=== PATIENT | female | born 1980 | race Caucasian/White ===

== ENCOUNTER 2024-06-11 19:37 | Emergency (ER) | payer BC, SELFPAY ==
[2024-06-11 19:41] VITALS: BP 110/64
[2024-06-11 20:07] LABS: Urine Albumin Trace (Neg - Trace); Urine Bilirubin Negative (Negative); Urine Character Clear (Clear); Urine Color Yellow; Urine Glucose Negative (Negative); Urine Ketone 2+ (Negative); Urine Leukocyte Negative (Negative); Urine Nitrite Negative (Negative); Urine Occult Blood 4+ (Negative); Urine Specific Gravity 1.025 (<1.030); Urine Urobilinogen Negative (Neg - 1+)
[2024-06-11 20:16] LABS: Urine Mucus Few; Urine Squamous Cell >30 /LPF (Few)
[2024-06-11 20:17] LABS: Urine Red Blood Cell 50-60 /HPF (0-2)
[2024-06-11 20:18] LABS: Urine Calcium Oxalate Crystals Present; Urine White Cell 0-2 /HPF (0-5)
[2024-06-11 20:19] LABS: Urine Bacteria Moderate (Negative); Urine Yeast Few (Negative)
[2024-06-11 20:20] LABS: HCG, Serum Qualitative Screen Negative
[2024-06-11 20:23] LABS: ALT (SGPT) 18 U/L (0-35); AST (SGOT) 31 U/L (14-36); Albumin 4.6 g/dl (3.5-5.0); Alkaline Phosphatase 83 U/L (38-126); Blood Urea Nitrogen 19 mg/dl (7-17); Calcium 9.5 mg/dl (8.4-10.2); Carbon Dioxide 23 mmol/L (22-30); Chloride 102 mmol/L (98-107); Glucose 94 mg/dl (70-99); Lipase 68 U/L (23-300); Sodium 136 mmol/L (135-145); Total Bilirubin 1.6 mg/dl (0.2-1.3); Total Protein 7.4 g/dl (6.3-8.2); eGFR > 60.00
--- NOTE | 2024-06-11 22:02 | ED.GENMED ---
History of Present Illness
General
Chief Complaint: Abdominal Symptoms
Time Seen by Provider: 06/11/24 21:41
History of Present Illness
History of Present Illness:
43-year-old female presents the emergency department for evaluation of abrupt onset of left lower pelvic pain with associated nausea and vomiting. Pain is waxing and waning in nature and seems to correlate with her episodes of vomiting. No
associated diarrhea. No fevers, chills, or sweats. Unable to tolerate p.o. fluids without vomiting. Prior abdominal surgery includes lysis of adhesions due to endometriosis as well as salpingectomy bilateral
Past History
Past History
ED Past Medical History: Hypothyroidism and Other (Multiple miscarriages)
Social History
Tobacco: Non-smoker
Alcohol: None
Drug: None
Personal:
Living: with family
Employment: Employed
Review of Systems
Review of Systems
Allergies reviewed?: Yes
All Other Systems: ROS reviewed and negative except as documented in HPI and ROS
Phy Exam
Physical Exam
Physical Exam:
GEN: Well appearing, NAD, WDWN
HEENT: Oral mucosa moist, no scleral icterus
Cardiac: Regular rate
Lung: No respiratory distress, no tachypnea
Abdomen: Soft, focal tenderness to the left pelvic and suprapubic space, no rigidity
MSK: No gross deformity or injuries
Skin: Good color, no pallor or jaundice, no rashes
Neuro: AO x3, moves all extremities freely
Psych: Calm, cooperative
Course
Orders/Labs/Results
Orders:
Orders
06/11/24 19:44
IV Insert/Care/Rem.- Treatment PRN
Straight cath- Treatment ONCE
06/11/24 19:45
Test Result ONCE
06/11/24 19:57
Comprehensive Metabolic Panel Urgent
HCG, Serum Qualitative Screen Urgent
Comment: Notify provider if positive test present
Lipase Urgent
Urinalysis Reflex To Culture Urgent
Date Specimen was Collected: 06/11/24
Time Specimen was Collected: 19:45
Urine Microscopic Reflex Cult Urgent
Urine Culture Urgent
LASHELL Source: U
Specimen Description:
Date Specimen was Collected: 06/11/24
Time Specimen was Collected: 19:45
06/11/24 22:00
0.9% Sodium Chloride 1000 ml [Nss] 1,000 ml IV BOLUS
Ketorolac [Toradol] 15 mg IV NOW STA
Ondansetron Injectable [Zofran] 4 mg IV NOW STA
US Pelvis W Transvag Combined Urgent
Comment:
Reason For Exam: L pelvic pain
06/11/24 22:04
Complete Blood Count/With Diff Urgent
Abnormal Lab Results
06/11/24 06/11/24
19:57 22:04
MPV 11.4 H fL
(7.4-10.4)
Absolute Lymphs (auto) 1.1 L 10^3/uL
(1.2-3.4)
Absolute Monos (auto) 0.7 H 10^3/uL
(0.1-0.6)
Immature Gran % 0.6 H %
(0-0.5)
Lymphocytes % 14.8 L %
(20.5-51.1)
Monocytes % 9.8 H %
(1.7-9.3)
BUN 19 H mg/dl
(7-17)
Total Bilirubin 1.6 H mg/dl
(0.2-1.3)
Urine Ketones 2+ A
(Negative)
Ur Occult Blood Reflex 4+ A
(Negative)
Urine RBC 50-60 A /HPF
(0-2)
Urine Bacteria (Reflex) Moderate A
(Negative)
Urine Yeast Few A
(Negative)
01/24/25 22:04
06/11/24 19:57
Vital Signs
Initial and Last Documented VS:
Initial Vital Signs
Pulse Resp BP Pulse Ox
72 22 110/64 100
06/11/24 19:41 06/11/24 19:41 06/11/24 19:41 06/11/24 19:41
Last Documented Vital Signs
Pulse Resp BP Pulse Ox
75 18 100/56 97
06/12/24 02:00 06/12/24 02:00 06/12/24 02:00 06/12/24 02:00
MDM/Problems Addressed
MDM/Problems Addressed:
Workup is reassuring,, pain improved after initial treatment, ultrasound shows no evidence for acute pathology. Likely self-limited viral syndrome
*Critical Care Note
Total Time (30-74mins, 75-104mins- exclusive of procedures): Not Applicable
ED Attending Note
-
Portions of this chart may have been created with voice recognition software.� Occasional wrong word or��sound alike� substitutions may have occurred due to the inherent limitations of voice recognition software.
Discharge Plan
Departure
Patient Disposition: Home (Routine Discharge)
Date of Disposition: 06/12/24
Time of Disposition: 01:52
Patient with high blood pressure during this ER visit?: No
Discharge Problem:
Lower abdominal pain
Instructions: Abdominal Pain
Prescriptions:
New
ondansetron 4 mg tablet,disintegrating
4 mg PO TIDPRN PRN (Reason: nausea/vomiting) Qty: 10 0RF
No Action
levothyroxine [Synthroid] 75 mcg tablet
75 mcg PO DAILY
bromocriptine 2.5 mg Tablet
2.5 mg PO HS
Referrals:
Lavell Mccloud MD [Family Provider] -
Interventions
Interventions:
*Risk Screen - Suicide Last Done: 06/11/24 19:41
*General Assessment Last Done: 06/11/24 19:41
*Neglect/Abuse Screening Last Done: 06/11/24 19:41
ED- Fall Risk Assessment Last Done: 06/11/24 21:43
*ED COVID-19 Vaccine History Last Done: 06/11/24 19:41
*Nursing Disposition Last Done: 06/12/24 02:03
DG-Vvokhv-Gpiwaqecgt Assessment Last Done: 06/11/24 23:11
Discharge Date and Time
Discharge Date/Time: 06/12/24 02:03
Print Language: [facility]
[2024-06-11] MEDS: ZOFRAN 4 MG IV (22:13)
[2024-06-11] MEDS: NSS 1000 IV (22:13)
[2024-06-11] MEDS: TORADOL 15 MG IV (22:13)
[2024-06-11 22:15] VITALS: BP 113/68
[2024-06-11 23:00] VITALS: BP 101/68
[2024-06-12] VITALS: BP 98/66
[2024-06-12 00:57] VITALS: BP 90/61
[2024-06-12 01:00] VITALS: BP 92/54
[2024-06-12 02:00] VITALS: BP 100/56
[2024-06-12 02:04] LABS: % Basophils 0.7 % (0-2); % Eosinophils 0.1 % (0-6); % Immature Granulocytes 0.6 % (0-0.5); % Lymphocytes 14.8 % (20.5-51.1); % Monocytes 9.8 % (1.7-9.3); Absolute Basophils 0.1 10^3/uL (0-0.2); Absolute Lymphocytes 1.1 10^3/uL (1.2-3.4); Absolute Monocytes 0.7 10^3/uL (0.1-0.6); Absolute Neutrophils 5.3 10^3/uL (1.4-6.5); Hematocrit 38.7 % (37.0-47.0); Hemoglobin 12.8 g/dL (12.0-16.0); Mean Corp Hgb Conc. 33.1 g/dL (33.0-37.0); Mean Corpuscular Volume 84.7 fL (81.0-99.0); Mean Platelet Volume 11.4 fL (7.4-10.4); Nucleated Red Blood Cells % 0 %; Platelet Count 196 10^3/uL (130-400); Red Blood Cell Count 4.57 10^6/uL (4.20-5.40); White Blood Cell Count 7.2 10^3/uL (4.8-10.8)
== END 2024-06-12 02:03 | disposition home or self-care (01) ==
LOC: EMR 19:37
PROVIDERS: Emergency Medicine; EMERGENCY PHYSICIAN Emergency Medicine; FAMILY PHYSICIAN Family Medicine
DX: R10.2 Pelvic and perineal pain (principal)
CPT/HCPCS: 99284; 96374; 96375; 96361; 76830; 76856; 80053; 81003; 81015; 83690; 84703; 85025; 87086